=== PATIENT | male | born 1970 | race Caucasian/White ===

== ENCOUNTER → 2018-08-12 | Outpatient (REF) | payer OTHER | LOC: M SFHCCLAY 16:51 | DX: Z53.9 Procedure and treatment not carried out, unspecified reason (principal) ==

== ENCOUNTER → 2018-09-27 | Outpatient (CLI) | payer OTHER ==
[2018-09-27 13:35] LABS: HEMATOCRIT 42.7 % (42.0-52.0); HEMOGLOBIN 14.7 g/dl (13.5-17.5); MEAN CORPUSCULAR HEMOGLOBIN 33.8 pg (27.0-33.0); MEAN CORPUSCULAR HGB CONC 34.4 g/dl (32.0-36.5); MEAN CORPUSCULAR VOLUME 98.2 fl (80.0-96.0); PLATELET COUNT, AUTOMATED 248 10^3/uL (150-450); RED BLOOD COUNT 4.35 10^6/uL (4.30-6.10); RED CELL DISTRIBUTION WIDTH 13.3 % (11.5-14.5); WHITE BLOOD COUNT 5.7 10^3/uL (4.0-10.0)
[2018-09-27 13:41] LABS: ANION GAP 4 MEQ/L (8-16); BLOOD UREA NITROGEN 12 MG/DL (7-18); CARBON DIOXIDE LEVEL 29 MEQ/L (21-32); CHLORIDE LEVEL 106 MEQ/L (98-107); CREATININE FOR GFR 0.97 MG/DL (0.70-1.30); GLOMERULAR FILTRATION RATE > 60.0 (>60); GLUCOSE, FASTING 97 MG/DL (70-100); POTASSIUM SERUM 4.4 MEQ/L (3.5-5.1); PSA SCREENING 1.8 NG/ML (< 4.0); SODIUM LEVEL 139 MEQ/L (136-145)
== END ==
LOC: M SMT 08:33
DX: Z12.5 Encounter for screening for malignant neoplasm of prostate (principal); R39.15 Urgency of urination; N41.9 Inflammatory disease of prostate, unspecified
CPT/HCPCS: 80048

== ENCOUNTER 2022-10-22 23:47 | Emergency (ER) | payer OTHER ==
[~2022-10-22] VITALS: Ht 193 cm; Wt 110.2 kg
[~2022-10-22 23:47] MED LIST: AMBI10TA PO; AUGM875T28 PO; GOOD1POW4 PO; LISI20TA33 PO; PRAZ1CAP PO; PROT1TAB2 PO; TYLE325T5 PO
[2022-10-23 03:46] VITALS: BP 141/78
[2022-10-23] MEDS ORDERED: AMOXICILLIN 500 MG CAP PO ONE (05:20)
[2022-10-23] MEDS ORDERED: KETOROLAC 60MG 2ML VIAL IM ONE (05:20)
[2022-10-23] MEDS ORDERED: AMOX500C PO (05:22)
== END 2022-10-23 05:35 | disposition home or self-care (01) ==
LOC: M ED 23:47
DX: J02.9 Acute pharyngitis, unspecified (principal); F10.10 Alcohol abuse, uncomplicated; I10 Essential (primary) hypertension; G47.33 Obstructive sleep apnea (adult) (pediatric); M54.50 Low back pain, unspecified; F43.10 Post-traumatic stress disorder, unspecified; Z79.811 Long term (current) use of aromatase inhibitors; Z79.899 Other long term (current) drug therapy
CPT/HCPCS: 87880; 96372; 99283; J1885

== ENCOUNTER 2024-01-25 10:11 | Emergency (ER) | payer OTHER ==
[~2024-01-25] VITALS: Ht 193 cm; Wt 110.7 kg
[~2024-01-25 10:11] MED LIST changes: +AMOX500C PO
[2024-01-25 11:25] LABS: BASO % 0.5 % (0.0-1.0); EOS # 0.1 10^3/uL (0.0-0.5); EOS % 1.7 % (0.0-3.0); HEMATOCRIT 46.3 % (42.0-52.0); HEMOGLOBIN 16.1 g/dl (13.5-17.5); LYMPH # 1.7 10^3/uL (1.5-5.0); LYMPH % 21.6 % (24.0-44.0); MEAN CORPUSCULAR HEMOGLOBIN 34.2 pg (27.0-33.0); MEAN CORPUSCULAR HGB CONC 34.8 g/dl (32.0-36.5); MEAN CORPUSCULAR VOLUME 98.3 fl (80.0-96.0); MONO # 0.5 10^3/uL (0.0-0.8); MONO % 6.7 % (2.0-8.0); NEUTROPHILS # 5.3 10^3/uL (1.5-8.5); NEUTROPHILS % 69.2 % (36.0-66.0); PLATELET COUNT, AUTOMATED 272 10^3/uL (150-450); RED BLOOD COUNT 4.71 10^6/uL (4.30-6.10); WHITE BLOOD COUNT 7.6 10^3/uL (4.0-10.0)
[2024-01-25 11:37] LABS: INR 1.04; PARTIAL THROMBOPLASTIN TIME 28.8 SECONDS (24.8-34.2); PROTHROMBIN TIME 13.3 SECONDS (12.5-14.5)
[2024-01-25 11:49] LABS: LIPASE 38 U/L (12-53)
[2024-01-25 11:50] LABS: AMYLASE 83 U/L (30-118)
[2024-01-25 11:51] LABS: ALBUMIN 4.1 G/DL (3.2-5.2); ALKALINE PHOSPHATASE 86 U/L (46-116); ALT/SGPT 24 U/L (7.0-40); AST/SGOT 13 U/L (<34); BILIRUBIN,DIRECT 0.2 MG/DL (<0.4); BILIRUBIN,TOTAL 0.7 MG/DL (0.3-1.2); BLOOD UREA NITROGEN 20 MG/DL (9-23); CALCIUM LEVEL 9.9 MG/DL (8.5-10.1); CARBON DIOXIDE LEVEL 27 MMOL/L (20-31); CHLORIDE LEVEL 108 MMOL/L (98-107); CREATININE FOR GFR 0.85 MG/DL (0.70-1.30); GLOMERULAR FILTRATION RATE > 60.0 (>56); GLUCOSE, FASTING 96 MG/DL (60-100); POTASSIUM SERUM 4.5 MMOL/L (3.5-5.1); SODIUM LEVEL 139 MMOL/L (136-145); TOTAL PROTEIN 7.3 G/DL (5.7-8.2)
[2024-01-25] MEDS ORDERED: PROT1TAB2 PO (14:04)
[2024-01-25 14:11] VITALS: BP 135/80; TEMP 97.2; O2SAT 100
== END 2024-01-25 14:26 | disposition home or self-care (01) ==
LOC: M ED 12:12
DX: R10.32 Left lower quadrant pain (principal); Z87.820 Personal history of traumatic brain injury; Z79.1 Long term (current) use of non-steroidal anti-inflammatories (NSAID)